=== PATIENT | male | born 1995 | race African-American/Black ===

== ENCOUNTER 2020-08-27 06:43 | Outpatient (CLI) | payer SELFPAY ==
[2020-08-27] VITALS (8 sets, daily range): BP systolic 94–113; BP diastolic 52–71; PULSE 51–71; TEMP 97.9
[~2020-08-27] VITALS: Ht 165.1 cm; Wt 83.3 kg
[2020-08-27 08:02] LABS: HEMATOCRIT 45.1 % (42.0-52.0); HEMOGLOBIN 13.8 g/dl (13.5-18.0); MEAN CELL VOLUME 78 fl (80.0-100.0); MEAN CORPUSCULAR HEMOGLOBIN 24 pg (27.0-31.0); MEAN CORPUSCULAR HGB CONC 31 g/dl (33.0-37.0); MEAN PLATELET VOLUME 9.4 fl (7.4-10.4); PLATELET COUNT 206 K/mm3 (130-400); RED BLOOD COUNT 5.81 M/mm3 (4.20-5.60); REDCELL DISTRIBUTION WIDTH-CV 13.3 % (11.5-14.5)
[2020-08-27 08:06] LABS: INR 1.3 (0.8-3.0); PROTHROMBIN TIME 14.4 SECONDS (9.7-12.8)
[2020-08-27 08:10] LABS: CALCIUM 9.6 mg/dL (8.4-10.2); CREATININE, serum 1.11 (0.66-1.25); POTASSIUM 4.2 mmol/L (3.4-5.0)
[2020-08-27] MEDS ORDERED: PROBIOTIC BLEN1 EACH PO (08:12)
[2020-08-27] MEDS ORDERED: DUO-KAPS1 CAP PO (08:12)
--- NOTE | 2020-08-27 11:05 | NUR ---
Discharge instructions given to pt.Pt verbalizes understanding.INT removed,catheter tip intct.Pt escorted out via wheelchair.
== END 2020-08-27 11:14 | disposition home or self-care (01) ==
LOC: COL.RAD 06:43
PROVIDERS: Internal Medicine Cardiovascular Disease
DX: I08.0 Rheumatic disorders of both mitral and aortic valves (principal); Z20.822 Contact with and (suspected) exposure to COVID-19
CPT/HCPCS: J2704; J7120